=== PATIENT | female | born 1960 | race Caucasian/White ===

== ENCOUNTER 2018-11-17 09:08 | Emergency (ER) | payer BC ==
--- NOTE | 2018-11-17 09:22 | Emergency Department Record ---
History of Present Illness - General Chief Complaint: Ankle/Foot Injury Stated Complaint: RIGHT ANKLE INJURY Time Seen by Provider: 11/17/18 09:16 Source: Patient Mode of Arrival: Ambulatory Limitations: No limitations - History of Present Illness Initial Comments: 58 yo female presents with right ankle pain and swelling. She injured the right ankle at 2am. She was stepping off a treadmill and twisted the ankle. She has medial, lateral and posterior ankle pain. She is ambulatory but with pain. No prior right foot/ankle disease. No other complaints. MD Complaint: Ankle injury -: Hour(s) (7) Injury: Ankle: Right, Foot: Right Type of Injury: Inversion Place: Home Severity: Moderate Improves With: Immobilization Worsens With: Palpation, Weight bearing Context: Walking Associated Symptoms: Tingling - Related Data Allergies Allergy/AdvReac Type Severity Reaction Status Date / Time cephalexin monohydrate AdvReac nausea Unverified 06/22/18 16:02 [From Keflex] Review of Systems Constitutional: Denies: Chills, Fever, Malaise, Weakness Eyes: Denies: Eye discharge ENT: Denies: Congestion, Throat pain Respiratory: Denies: Cough Cardiovascular: Denies: Syncope Endocrine: Denies: Fatigue Gastrointestinal: Denies: Abdominal pain, Diarrhea, Nausea, Vomiting Genitourinary: Denies: Dysuria, Frequency Musculoskeletal: Reports: As per HPI, Arthralgia Neurological: Reports: Tingling. Denies: Confusion, Headache, Weakness Psychiatric: Denies: Anxiety Hematological/Lymphatic: Denies: Easy bleeding, Easy bruising, Swollen glands Physical Exam - General General Appearance: Alert, Oriented x3, Cooperative, No acute distress Limitations: No limitations - Head Head exam: Atraumatic, Normal inspection - Eye Eye exam: Normal appearance. negative: Conjunctival injection, Scleral icterus - ENT ENT exam: Normal exam Ear exam: Normal external inspection Nasal Exam: Normal inspection Mouth exam: Normal external inspection Teeth exam: Normal inspection - Neck Neck exam: Normal inspection - Respiratory Respiratory exam: Normal lung sounds bilaterally - Cardiovascular Peripheral Pulses: 2+: Dorsalis Pedis (R) - Extremities Extremities exam: Full ROM, Joint swelling, Normal capillary refill, Tenderness. negative: Normal inspection Image of Feet: 1 - swelling lateral greater than medial, bimalleolar tendernes, mild posterior tenderness, achilles is intact, no achilles deformity, Normal Malloy test response 2 - tender but intact, normal inspection - Back Back exam: Reports: Full ROM - Neurological Neurological exam: Alert, Oriented X3 - Psychiatric Psychiatric exam: Normal affect, Normal mood - Skin Skin exam: Dry, Intact, Normal color, Warm Course - Reevaluation(s) Reevaluation #1: 11/17/18 09:51 The XR was reviewed No acute fracture I discussed that concerns with potential achilles tendon injures will need to be splint in foot plantar flexion to allow the achilles to rest without tension. No weight bearing for one week then recheck with her doctor. I explained that weight bearing can cause a complete or more serious tear. Disposition Disposition: Discharge Clinical Impression: Ankle sprain Qualifiers: Encounter type: initial encounter Involved ligament of ankle: unspecified ligament Laterality: right Qualified Code(s): S93.401A - Sprain of unspecified ligament of right ankle, initial encounter Disposition: Home, Self-Care Condition: (1) Good Instructions: Ankle Sprain (ED) Additional Instructions: Call your doctor for the next available follow up appointment if pain continues more that 5-7 days Return to the ER for a recheck if worse, any new concerns or questions Use the crutches and boot as directed until the pain is gone Review this ER visit and the tests performed with your family doctor Forms: Patient Portal Access Quality - Quality Measures Quality Measures: N/A - Blood Pressure Screening Does Patient Have Any of the Following: No Blood Pressure Classification: Pre-Hypertensive BP Reading Systolic Measurement: 140 Diastolic Measurement: 80 Screening for High Blood Pressure: < Pre-Hypertensive BP, F/U Documented > [ [id number]] Pre-Hypertensive Follow-up Interventions: Referral to alternative/primary care provider.
--- NOTE | 2018-11-19 10:31 | RADIOLOGY REPORT ---
EXAM: RIGHT ANKLE, THREE VIEWS HISTORY: POSTERIOR AND LATERAL PAIN/SWELLING POST INJURY THIS MORNING. TECHNIQUE: Three views of the right ankle were obtained. Comparison: None. Encounter: Initial. FINDINGS: There is normal bone mineralization. No fracture, dislocation, nor destructive bone lesion is seen. The ankle mortise joint space is symmetric. The articular relations of the hindfoot are maintained. Mild lateral soft tissue swelling. Mild spurring at the Achilles tendon insertion on the posterior calcaneus. IMPRESSION: 1. NO ACUTE FRACTURE NOR DISLOCATION. MILD LATERAL SOFT TISSUE SWELLING. 2. MILD SPURRING AT THE ACHILLES TENDON INSERTION ON THE POSTERIOR CALCANEUS. JOB NUMBER: [id number] MTDD
== END 2018-11-17 10:19 | disposition home or self-care (01) ==
LOC: ER 09:08
DX: S93.401A Sprain of unspecified ligament of right ankle, initial encounter (principal); W50.2XXA Accidental twist by another person, initial encounter; Y93.A1 Activity, exercise machines primarily for cardiorespiratory conditioning; Y92.009 Unspecified place in unspecified non-institutional (private) residence as the place of occurrence of the external cause
CPT/HCPCS: 99283